=== PATIENT | male | born 1990 | race Asian ===

== ENCOUNTER 2025-04-28 06:20 | Outpatient (REF) | payer OTHER, SELFPAY ==
--- NOTE | ~2025-04-28 | US_ITS ---
CLINICAL HISTORY: ABDOMINAL PAIN US abdomen complete Comparison: None Provided Findings: Gallbladder unremarkable, no stone formation or wall thickening. Common duct measures 2.8 mm. No sonographic Green sign. Fatty infiltration of the liver without focal abnormality. Main portal vein patent with normal direction of flow. Pancreas is unremarkable. Aorta and IVC patent and normal in caliber. The right kidney is normal, 10.4 cm in length. No focal abnormality or hydronephrosis. The left kidney is normal, 11.8 cm in length. No focal abnormality or hydronephrosis. The spleen is normal, 10.2 cm in length. No focal abnormality. Impression: Fatty infiltration of the liver No other abnormality This document has been electronically signed by: Dennis Medina MD on 04/28/2025 20:53:57
--- OUTSIDE RECORDS SUMMARY | 2025-04-28 06:22 | XMS_ITS | Encounter Summary ---
Author Organization [facility] Address [address] [facility] [address] [place] [address] Phone Care Team Providers Care Legal Process Specialist Name Role Phone Unknown, Unknown Primary Care Provider Lucretia Da Silva MD Primary Care Provider [phone] Encounter Details Date Type Department Care Team (Late st Contact Info) Description 01/09/2023 Transcribe Orders Virtual Department [address] [place] [phone] Lucretia Gee MD [address] [place] [address] [email or web address] Abdominal pain, unspecified abdominal location (Primary Dx) Social History Tobacco Use Types Packs/Day Years Used Date Smoking Tobacco: Never Assessed Education Answer Date Recorded Are you interested in more education? Not on roverto e 12/29/2022 Are you concerned about learning? Not on file 12/29/2022 No 12/29/2022 No 12/29/2022 Sex and Gender Information Value Date Recorded Sex Assigned at Not on file Legal Sex Male 12:14 PM EST Gender Identity Not on file Sexual Orientation Not on file documented as of this encounter Plan of Treatment Upcoming Encounters Date Type Department Care Team (Late Contact Info) Description 04/21/2025 Procedure Pass [address] [address] 05/07/2025 3:15 PM EDT Appointment [address] [address] Marquez Corral DO [address] [place] [address] [email or web address] documented as of this encounter Results * US ABDOMEN COMPLETE (ADULT) (01/24/2023 9:35 AM EDT) Anatomical Region Laterality Modality Abdomen Ultrasound 01/24/2023 11:4 5 AM EDT Impressions 01/24/2023 12:16 PM EDT Increased echogenicity of the hepatic parenchyma which may be seen in the setting of hepatic steatosis. No focal hepatic lesions demonstrated sonographically. Narrative 01/24/2023 12:16 PM EDT US ABDOMEN COMPLETE (ADULT) TECHNIQUE: Abdominal Ultrasound Complete. COMPARISON: There is no prior study available for comparison FINDINGS: Liver: There is increased echogenicity of the hepatic parenchyma which may be seen in the setting of hepatic steatosis. There is focal fatty sparing adjacent to the gallbladder fossa No focal hepatic lesions demonstrated sonographically. Main Portal Vein: Patent with normal direction of flow. Gallbladder: No gallstones or gallbladder wall thickening. Green's Sign: Negative Biliary: No intrahepatic or extrahepatic biliary ductal dilatation. The common bile duct measures 4 mm. Pancreas: Incompletely visualized. Visualized portions are within normal limits. Spleen: Normal echogenicity. No splenomegaly. Kidneys: Normal in size and echogenicity bilaterally. No stones or hydronephrosis. Aorta: Evaluation limited by overlying bowel gas. Normal, where visualized sonographically. IVC: Evaluation limited by overlying bowel gas. Normal intrahepatic segment. Procedure Note Brie Daniels MD - 01/24/2023 US ABDOMEN COMPLETE (ADULT) TECHNIQUE: Abdominal Ultrasound Complete. COMPARISON: There is no prior study available for comparison FINDINGS: Liver: There is increased echogenicity of the hepatic parenchyma which maybe seen in the setting of hepatic steatosis. There is focal fatty sparingadjacent to the gallbladder fossa No focal hepatic lesions demonstratedsonographically. Main Portal Vein: Patent with normal direction of flow. Gallbladder: No gallstones or gallbladder wall thickening. Green's Sign: Negative Biliary: No intrahepatic or extrahepatic biliary ductal dilatation. The common bile duct measures 4 mm. Pancreas: Incompletely visualized. Visualized portions are within normallimits. Spleen: Normal echogenicity. No splenomegaly. Kidneys: Normal in size and echogenicity bilaterally. No stones orhydronephrosis. Aorta: Evaluation limited by overlying bowel gas. Normal, where visualizedsonographically. IVC: Evaluation limited by overlying bowel gas. Normal intrahepaticsegment. IMPRESSION: Increased echogenicity of the hepatic parenchyma which may be seen in thesetting of hepatic steatosis. No focal hepatic lesions demonstratedsonographically. us Lucretia Gee MD G US ABDOMEN Final Result documented in this encounter Visit Diagnoses Diagnosis Abdominal pain, unspecified abdominal location- Primary Abdominal pain, unspecified abdominal location documented in this encounter Care Teams Legal Process Specialist Relationship Specialty Start Date End Date Unknown, Unknown, MD PCP - General 07/19/17 01/16/23 Lucretia Gee MD [address] [place] [address] [email or web address] PCP - General Pediatrics 01/17/23 documented as of this encounter Additional Source Comments The information contained in this document represents components of the legal health record. It is not the complete legal health record.[facility]
--- OUTSIDE RECORDS SUMMARY | 2025-04-28 06:23 | XMS_ITS | Clinical Summary ---
Author Organization [facility] Address [address] [facility] [address] [place] [address] Phone Care Team Providers Care Mold Builder Name Role Phone Lucretia Gee MD Primary Care Provider [phone] Encounters Date Type Department Care Team Description 04/21/2025 Transcribe Orders Virtual Department [address] [place] [address] Marquez Corral DO Abdominal pain, unspecified abdominal location (Primary Dx) from Last 3 Months Social History Tobacco Use Types Packs/Day Years Used Date Smoking Tobacco: Never Assessed Education Answer Date Recorded Are you interested in more education? Not on roverto e 12/29/2022 Are you concerned about learning? Not on file 12/29/2022 No 12/29/2022 No 12/29/2022 Digital Access Answer Date Recorded No 01/24/2023 No 01/24/2023 No 01/24/2023 Reliable internet access at home? Not on file 01/24/2023 Device with a working camera? Not on file Sex and Gender Information Value Date Recorded Sex Assigned at Not on file Legal Sex Male 12:14 PM EST Gender Identity Not on file Sexual Orientation Not on file Plan of Treatment Upcoming Encounters Date Type Department Care Team (Late st Contact Info) Description 04/21/2025 Procedure Pass [address] [address] 05/07/2025 3:15 PM EDT Appointment [address] [address] Marquez Corral DO [address] [place] [address] [email or web address] Maintenance Due Date Last Done Comments Adult Td,Tdap Booster 1992 DEPRESSION SCREENING 2004 SMOKING Hx and SMOKELESS TOBACCO SCREENING 2005 HEPATITIS C SCREENING 2010 HIV ONE-TIME SCREENING (18-6 5 YEARS) 2010 COVID-19 VACCINE (2023-2 5 season) 2024 09/23/2021, 02/08/2021, 01/17/2021 INFLUENZA VACCINE (#1) 2025 HEPATITIS A VACCINES Aged Out No long er eligible based on patient's age to complete this topic HIB VACCINES Aged Out No longer eligi ble based on patient's age to complete this topic MENINGOCOCCAL VACCINES (ACWY) Aged Out No longer eligible based on patient's age to complete this topic MENINGOCOCCAL VACCINES (B) Aged Out N o longer eligible based on patient's age to complete this topic PNEUMOCOCCAL VACCINES (0-49 years) Aged Out No longer eligible b ased on patient's age to complete this topic Medical Devices Not on file Insurance [employer] [facility] WELLFLEET CIGNA WELLFLEET Member Subscriber Plan / Payer (Ef fective 2021-Present) Name:Igor Davis Relation to Subscriber:Self Name:Igor Davis Payer ID:[id number] (NAIC) Type:PPO Address: [place] [id number] CIGNA WELLFLEET TARA CROOKST Care Teams Mold Builder Relationship Specialty Start Date End Date Lucretia Gee MD [address] [place] [address] PCP - General Pediatrics 01/17/23 Additional Source Comments The information contained in this document represents components of the legal health record. It is not the complete legal health record.[facility]
--- OUTSIDE RECORDS SUMMARY | 2025-04-28 06:23 | XMS_ITS | Encounter Summary ---
Author Organization [facility] Address [address] [facility] [address] [place] [address] Phone Care Team Providers Care Surgery Scheduling Coordinator Name Role Phone Lucretia Gee MD Primary Care Provider [phone] Reason for Referral * MRI/CAT Scan - Authorized Specialty Diagnoses / Procedures Referred By Kiki noriega Referred To Contact Radiology Diagnoses Abdominal pain, unspecified abdominal location Procedures CT Abdomen/Pelvis Marquez Corral DO [address] [place] [address] Phone: tel: fax: [email or web address] Referral ID Status Reason Start Date Expiration Date V isits Requested Visits Authorized [id number] Authorized 04/21/2025 04/21/2026 1 1 Encounter Details Date Type Department Care Team (Late st Contact Info) Description 04/21/2025 Transcribe Orders Virtual Department [address] [place] [address] Marquez Corral DO [address] [place] [address] [email or web address] Abdominal pain, unspecified abdominal location (Primary Dx) [...] st Contact Info) Description 04/21/2025 Procedure Pass [facility], [address] [address] 05/07/2025 3:15 PM EDT Appointment [address] [address] Marquez Corral DO [address] [place] [address] [email or web address] Scheduled Orders Name Type Priority Associated Diagnoses Orde r Schedule CT Abdomen/Pelvis Imaging Routine Abdominal pain, unspecified abdominal location Expected: 04/21/2025, Expires: 04/21/2026 documented as of this encounter Visit Diagnoses Diagnosis Abdominal pain, unspecified abdominal location- Primary documented in this encounter Care Teams Surgery Scheduling Coordinator Relationship Specialty Start Date End Date Lucretia Gee MD [address] [place] [address] [email or web address] PCP - General Pediatrics 01/17/23 documented as of this encounter Additional Source Comments The information contained in this document represents components of the legal health record. It is not the complete legal health record.[facility]
== END 2025-04-28 06:21 | disposition home or self-care (01) ==
LOC: HO.UMASIMG 06:20
PROVIDERS: Visit Provider Internal Medicine
DX: R10.9 Unspecified abdominal pain (principal)
CPT/HCPCS: 76700

== ENCOUNTER → 2025-04-28 09:00 | Outpatient (BNV) | payer OTHER, SELFPAY | PROVIDERS: Visit Provider Radiology Diagnostic Radiology | DX: R10.9 Unspecified abdominal pain (principal); K76.0 Fatty (change of) liver, not elsewhere classified | CPT/HCPCS: 76700 ==